=== PATIENT | female | born 1990 | race Caucasian/White ===

== ENCOUNTER → 2017-11-08 | Outpatient (CLI) | payer OTHER | LOC: M WUC 17:15 | DX: S20.212A Contusion of left front wall of thorax, initial encounter (principal); X58.XXXA Exposure to other specified factors, initial encounter; Y92.9 Unspecified place or not applicable | CPT/HCPCS: 71101 ==

== ENCOUNTER → 2018-03-17 | Outpatient (CLI) | payer OTHER | LOC: M WUC 13:44 | DX: M54.5 Low back pain (principal) | CPT/HCPCS: 72110 ==

== ENCOUNTER → 2018-04-21 | Outpatient (REF) | payer OTHER | LOC: M SFHCLERA 15:21 | DX: R30.0 Dysuria (principal) ==

== ENCOUNTER → 2018-05-20 | Outpatient (CLI) | payer OTHER | LOC: M RAD 11:17 | DX: Q76.0 Spina bifida occulta (principal) | CPT/HCPCS: 72148 ==

== ENCOUNTER → 2018-07-29 | Outpatient (CLI) | payer OTHER | LOC: M WUC 18:36 | DX: S63.502A Unspecified sprain of left wrist, initial encounter (principal); X58.XXXA Exposure to other specified factors, initial encounter; Y92.9 Unspecified place or not applicable | CPT/HCPCS: 73110 ==

== ENCOUNTER → 2019-06-07 | Outpatient (REF) | payer OTHER | LOC: M LAB REF 09:11 | PROVIDERS: ATTEND Physician Assistant Medical | DX: R30.0 Dysuria (principal) ==

== ENCOUNTER → 2020-07-13 | Outpatient (REF) | payer OTHER | LOC: M WUC 15:48 | PROVIDERS: ATTEND Physician Assistant | DX: J02.9 Acute pharyngitis, unspecified (principal) ==

== ENCOUNTER 2020-10-06 15:59 | Emergency (ER) | payer OTHER ==
[~2020-10-06] VITALS: Ht 157.5 cm; Wt 65.4 kg
--- OUTSIDE RECORDS SUMMARY | 2020-10-06 16:05 | CCD | Continuity of Care Document ---
Author Author Skye MONTEMAYOR [place] Organization Unknown Address [address] [place] [address] Phone [phone] Care Team Providers Care Stone Planer Name Role Phone [facility] AUTM [phone] [facility] AUTM [phone] Problems Description No Information Available Social History Type Date Description Comments Sex Unknown ETOH Use Rarely consumes alcohol Tobacco Use Start: Unknown Patient is a current smoker, smo kes every day Smoking Status Reviewed: 07/13/20 Patient is a current smoker, smokes every day Allergies, Adverse Reactions, Alerts Description No Known Drug Allergies Medications Active Medications SIG Qnty Indications Ordering Provide r Date Vicks Dayquil Cough Unknown History Medications No Active Medications Unknown 12/2019 - 07/13/2020 Immunizations Description No Information Available Vital Signs Date Vital Result Comment 07/13/2020 2:03pm BP Systolic 117 mmHg BP Diastolic 75 mmHg Heart Rate 99 /min Respiratory Rate 18 /min O2 % BldC Oximetry 99 % Body Temperature 99.2 F Weight 135.00 lb Height 62 inches 5'2" BMI (Body Mass Index) 24.7 kg/m2 Pain Level 2 10/17/2018 12:10pm BP Systolic 106 mmHg BP Diastolic 76 mmHg Heart Rate 101 /min Respiratory Rate 18 /min O2 % BldC Oximetry 98 % Body Temperature 99.0 F Weight 125.00 lb Height 62 inches 5'2" BMI (Body Mass Index) 22.9 kg/m2 Pain Level 6 Results Test Acquired Date Facility Test Result H/L Range Note Laboratory test finding 07/13/[address] [facility] [address] [place] [address] [phone] Throat Culture <pending> Procedures Description No Information Available Medical Devices Description No Information Available Encounters Type Date Location Provider Dx Diagnosis Office Visit 07/13/2020 2:45p Main Office ANNA Manzanares J02.9 Acute pharyngitis, unspecified Z20.828 Contact w and exposure to ot h viral communicable diseases Assessments Date Code Description Provider 07/13/2020 J02.9 Acute pharyngitis, unspecified J ANNA Santamaria 07/13/2020 Z20.828 Contact with and (alarcon spected) exposure to other viral communicable diseases ANNA Manzanares Plan of Treatment No Information Available Functional Status Description No Information Available Mental Status Description No Information Available Referrals Description No Information Available
--- OUTSIDE RECORDS SUMMARY | 2020-10-06 16:05 | CCD | Continuity of Care Document ---
Author Author Skye MONTEMAYOR [place] Organization Unknown Address [address] [place] [id number] Phone [phone] Care Team Providers Care Electrotherapist Name Role Phone [facility] AUTM [phone] [facility] AUTM [phone] Problems Description No Information Available Social History [...] H/L Range Note Laboratory test finding 07/13/2020 [facility] [address] [place] [address] [phone] Throat Culture <pending> Procedures Description No Information [...]
--- OUTSIDE RECORDS SUMMARY | 2020-10-06 16:05 | CCD ---
Author Author [facility] Organization [facility] Address Unknown Phone Unavailable Care Team Providers Care Nanotechnology Engineering Technician Name Role Phone David SANTILLAN Unavailable Unavailable David SANTILLAN Unavailable Unavailable David SANTILLAN Unavailable Unavailable David SANTILLAN Unavailable Unavailable David SANTILLAN Unavailable Unavailable David SANTILLAN Unavailable Unavailable David SANTILLAN Unavailable Unavailable David SANTILLAN Unavailable Unavailable JACQUE, L ELIDA PA Unavailable Unavailable JACQUE, L ELIDA PA Unavailable Unavailable JACQUE, L ELIDA PA Unavailable Unavailable JACQUE, L ELIDA PA Unavailable Unavailable JACQUE, L ELIDA PA Unavailable Unavailable JACQUE, L ELIDA PA Unavailable Unavailable JACQUE, L ELIDA PA Unavailable Unavailable JACQUE, L ELIDA PA Unavailable Unavailable JACQUE, L ELIDA PA Unavailable Unavailable JACQUE, L ELIDA PA Unavailable Unavailable JACQUE, L ELIDA PA Unavailable Unavailable EARLY, W VERNON PA Unavailable Unavailable EARLY, W VERNON PA Unavailable Unavailable EARLY, W VERNON PA Unavailable Unavailable EARLY, W VERNON PA Unavailable Unavailable EARLY, W VERNON PA Unavailable Unavailable EARLY, W VERNON PA Unavailable Unavailable EARLY, W VERNON PA Unavailable Unavailable EARLY, W VERNON PA Unavailable Unavailable EARLY, W VERNON PA Unavailable Unavailable EARLY, W VERNON PA Unavailable Unavailable EARLY, W VERNON PA Unavailable Unavailable EARLY, W VERNON PA Unavailable Unavailable EARLY, W VERNON PA Unavailable Unavailable RADHA, KETAN DESIREE PA Unavailable Unavailable RADHA, KETAN DESIREE PA Unavailable Unavailable RADHA, KETAN DESIREE PA Unavailable Unavailable RADHA, KETAN DESIREE PA Unavailable Unavailable RADHA, KETAN DESIREE PA Unavailable Unavailable RADHA, KETAN DESIREE PA Unavailable Unavailable RADHA, KETAN DESIREE PA Unavailable Unavailable RADHA, KETAN DESIREE PA Unavailable Unavailable RADHA, KETAN DESIREE PA Unavailable Unavailable RADHA, KETAN DESIREE PA Unavailable Unavailable RADHA, KETAN DESIREE PA Unavailable Unavailable RADHA, KETAN DESIREE PA Unavailable Unavailable RADHA, KETAN DESIREE PA Unavailable Unavailable RADHA, KETAN DESIREE PA Unavailable Unavailable RADHA, KETAN DESIREE PA Unavailable Unavailable RADHA, KETAN DESIREE PA Unavailable Unavailable RADHA, KETAN DESIREE PA Unavailable Unavailable RADHA, KETAN DESIREE PA Unavailable Unavailable RADHA, KETAN DESIREE PA Unavailable Unavailable RADHA, KETAN DESIREE PA Unavailable Unavailable RADHA, KETAN DESIREE PA Unavailable Unavailable Das, Gena Lorenza PA Unavailable Unavailable Das, Gena Lorenza PA Unavailable Unavailable Das, Gena Lorenza PA Unavailable Unavailable Das, Gena Lorenza PA Unavailable Unavailable Das, Gena Lorenza PA Unavailable Unavailable Das, Gena Lorenza PA Unavailable Unavailable Das, Gena Lorenza PA Unavailable Unavailable Das, Gena Lorenza PA Unavailable Unavailable Das, Gena Lorenza PA Unavailable Unavailable Das, Gena Lorenza PA Unavailable Unavailable Yaworski, Candida HOUSE CARPENTER HELPER Unavailable Unavailable Yaworski, Candida HOUSE CARPENTER HELPER Unavailable Unavailable Yaworski, Candida HOUSE CARPENTER HELPER Unavailable Unavailable Yaworski, Candida HOUSE CARPENTER HELPER Unavailable Unavailable Yaworski, Candida HOUSE CARPENTER HELPER Unavailable Unavailable Yaworski, Candida HOUSE CARPENTER HELPER Unavailable Unavailable Yaworski, Candida HOUSE CARPENTER HELPER Unavailable Unavailable Yaworski, Candida HOUSE CARPENTER HELPER Unavailable Unavailable Yaworski, Candida HOUSE CARPENTER HELPER Unavailable Unavailable Yaworski, Candida HOUSE CARPENTER HELPER Unavailable Unavailable Yaworski, Candida HOUSE CARPENTER HELPER Unavailable Unavailable Yaworski, Candida HOUSE CARPENTER HELPER Unavailable Unavailable Yaworski, Candida HOUSE CARPENTER HELPER Unavailable Unavailable Yaworski, Candida HOUSE CARPENTER HELPER Unavailable Unavailable Yaworski, Candida HOUSE CARPENTER HELPER Unavailable Unavailable Yaworski, Candida HOUSE CARPENTER HELPER Unavailable Unavailable Yaworski, Candida HOUSE CARPENTER HELPER Unavailable Unavailable Yaworski, Candida HOUSE CARPENTER HELPER Unavailable Unavailable Yaworski, Candida HOUSE CARPENTER HELPER Unavailable Unavailable Yaworski, Candida HOUSE CARPENTER HELPER Unavailable Unavailable Yaworski, Candida HOUSE CARPENTER HELPER Unavailable Unavailable Yaworski, Candida HOUSE CARPENTER HELPER Unavailable Unavailable Yaworski, Candida HOUSE CARPENTER HELPER Unavailable Unavailable Yaworski, Candida HOUSE CARPENTER HELPER Unavailable Unavailable Re-disclosure Warning The records that you are about to access may contain information from federally-assisted alcohol or drug abuse programs. If such information is present, then the following federally mandated warning applies: This information has been disclosed to you from records protected by federal confidentiality rules (42 CFR part 2). The federal rules prohibit you from making any further disclosure of this information unless further disclosure is expressly permitted by the written consent of the person to whom it pertains or as otherwise permitted by 42 CFR part 2. A general authorization for the release of medical or other information is NOT sufficient for this purpose. The Federal rules restrict any use of the information to criminally investigate or prosecute any alcohol or drug abuse patient.The records that you are about to access may contain highly sensitive health information, the redisclosure of which is protected by Article 27-F of the [facility] Public Health law. If you continue you may have access to information: Regarding HIV / AIDS; Provided by facilities licensed or operated by the [facility] Office of Mental Health; or Provided by the [facility] Office for People With Developmental Disabilities. If such information is present, then the following [facility] mandated warning applies: This information has been disclosed to you from confidential records which are protected by state law. State law prohibits you from making any further disclosure of this information without the specific written consent of the person to whom it pertains, or as otherwise permitted by law. Any unauthorized further disclosure in violation of state law may result in a fine or long term sentence or both. A general authorization for the release of medical or other information is NOT sufficient authorization for further disc losure. Family History Family Member Name Family Member Gender Family Member Status Date o f Status Description Data Source(s) Unknown Unknown Problem [facility] ([facility], [facility]) Unknown Male Problem [facility] ([facility] ) Encounters Encounter Providers Location Date Indications Data Source(s ) Outpatient Attender: Lorenza Cruz beka 07/13/2020 01:45:00 PM EST [facility] ([facility]) Emergency Attender: ELIDA Diazerrer: Candida quintero NP 03/28/2020 07:15:00 PM EDT - [facility] [place] [facility]. Emergency Attender: DESIREE De Jesus AAttender: ELIDA Diazerrer: Candida Bruner NP 11/17/2018 06:57:00 PM EDT - 11/17/2018 09:24 :00 PM [facility] Emergency Attender: VERNON Pantojaer: Candida Bruner NP EMERGENCY ROOM-ER 12/05/2015 09:11:00 AM EDT - 11/27/2015 11:45:00 PM [facility] Emergency Attender: VERNON Pantojaer: Candida Bruner NP 09/13/2015 05:57:00 PM EST - 08/17/2015 09:22:00 AM EST [facility] Outpatient Attender: Candida CROSSeferrer: Candida boswell NP 07/08/2014 10:00:00 AM [facility] Medications Medication Brand Name Start Date Product Form Dose Route Admi nistrative Instructions Pharmacy Instructions Status Indications Reaction Description Data Source(s) No Active Medications 07/13/2020 12:00:00 AM EST completed [facility] ([facility]) 10 mg 04/01/2020 12:00:00 AM EDT tablet 20 TAKE ONE TABLET BY MOUTH EVERY 6 HOURS FOR 5 DAYS TAKE ONE TABLET BY MOUTH EVERY 6 HOURS FOR 5 DAYS SOLD : 04/01/2020 [facility] Insurance Providers Payer name Policy type / Coverage type Policy ID Covered constitution party ID Covered constitution party's relationship to franklin Policy [place] Plan Information UNHC COMMUNITY PLAN MCDO [id number] SP [id number] UNITED HE[employer]CARE MEDICAID [id number] S [id number] UNITED HEALTHCARE MEDICAID [id number] S [id number] UNITED HEALTHCARE MEDICAID [id number] S [id number] United 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) [id number] Self [id number] UNITED HEALTHCARE MEDICAID [id number] S [id number] UNITED HEALTHCARE(MCAID) O [id number] S [id number] United 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) [id number] Self [id number] [facility] Community Plan Commercial [id number] Self [id number] [facility] COMMUNITY PLAN [facility] [id number] SP [id number] [facility] Community Plan Commercial [id number] Self [id number] ANSI-Medicaid [id number] United 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) [id number] Self [id number] United 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) [id number] Self [id number] UNITED HEALTHCARE MEDICAID [place] HMO [id number] S [id number] UNITED HEALTHCARE(MCAID) O [id number] S [id number] [facility] Community Plan Commercial Self [employer] BCBS P [id number] S [id number] BLUE CROSS SHARIF PLAN [id number] SP [id number] BLUE CROSS BLUE SHIELD-CLINIC [id number] 18 [id number] BLUE CROSS BLUE SHIELD-O/P [id number] MEDICAID -RECURRING [id number] Problems, Conditions, and Diagnoses Code Display Name Description Problem Type Effective Dates Data Source(s) Y92.[address] in unspeci fied non-institutional (private) residence as the place of occurrence of the external cause UNSP PLACE IN UNSP NON-INSTITUT (PRIVATE) RESIDENC Diagnosis 03/28/2020 07:15:00 PM [facility] W11.XXXA Fall on and from ladder, initial encount er FALL ON AND FROM LADDER, INITIAL ENCOUNTER Diagnosis 03/28/2020 07:15:00 PM [facility] Y93.89 Activity, other specified ACTIVITY, OTHER SPECIFIED Di agnosis 03/28/2020 07:15:00 PM [facility] S60.212A Contusion of left wrist, initial encount er CONTUSION OF LEFT WRIST, INITIAL ENCOUNTER Diagnosis 03/28/2020 07:15:00 PM [facility] S50.12XA Contusion of left forearm, initial encou nter CONTUSION OF LEFT FOREARM, INITIAL ENCOUNTER Diagnosis 03/28/2020 07:15:00 PM [facility] S59.912A Unspecified injury of left forearm, init ial encounter UNSPECIFIED INJURY OF LEFT FOREARM, INITIAL ENCOUNTER Diagnosis 03/28/2020 07:15:0 0 PM [facility] Results ID Date Data Source [id number] 07/13/2020 02:37:00 PM EST [facility] ([facility]) Name Value Range Interpretation Code Description Data Elvie rce(s) Supporting Document(s) Bacteria identified in Throat by Culture Laboratory test result MED[facility] ([facility]) FULL REPORT IN LAB NOTES (eCW and Med[facility] ). NORMAL LUIS PRESENT ID Date Data Source [id number] 03/28/2020 07:58:00 PM [facility] Patient: GLORIA URRUTIA Observati on Report - [facility].VisitID: [id number] [place] [address] [phone], FRegistration Date/Time: 03/28/2020 18:02 Weight:61.2 kg (S). Height/Length:62 inches (S). BMI:24.7 PAST HISTORYProblems:Recent Travel. Additional Surgeries:Cholecystectomy.. (X 2)Fifth digit on right hand. Medications:None. Allergies:No Known Drug Allergies. FAMILY HISTORYNegative. No significant family medical history. (Electronically signed by Pam Hardy 03/28/2020 19:57) Name Value Range Interpretation Code Description Data Elvie rce(s) Supporting Document(s) ID Date Data Source [id number] 03/28/2020 07:55:00 PM EDT [facility] Patient: GLORIA URRUTIA Observati on Report - [facility].VisitID: [id number] [place] [address] [phone], FRegistration Date/Time: 03/28/2020 18:02 Weight:61.2 kg (S). Height/Length:62 inches (S). BMI:24.7 PAST HISTORYProblems:Recent Travel. Additional Surgeries:Cholecystectomy.. (X 2)Fifth digit on right hand. Medications:None. Allergies:No Known Drug Allergies. FAMILY HISTORYNegative. No significant family medical history. (Electronically signed by Pam Hardy 03/28/2020 19:53) Name Value Range Interpretation Code Description Data Elvie rce(s) Supporting Document(s) ID Date Data Source [id number] 03/28/2020 07:19:00 PM EDT [facility] DATE OF EXAMINATION: 03/28/2020 18:22 EDT TECHNIQUE: 2 views of the left forearm were obtained. HISTORY: Injury There is no acute fracture or dislocation. The joint spaces are normal inappearance. IMPRESSION: There is no acute fracture or dislocation. Electronically signed in PS360 by: Abimael Quinones M.D. 03/28/2020 19:14 EDT Name Value Range Interpretation Code Description Data Elvie rce(s) Supporting Document(s) ID Date Data Source [id number] 03/28/2020 07:18:00 PM EDT [facility] DATE OF EXAMINATION: 03/28/2020 18:22 EDT TECHNIQUE: 4 views of the left elbow were obtained. HISTORY: Injury FINDINGS: There is no acute fracture or dislocation. The joint space is normalin appearance. IMPRESSION: There is no acute fracture or dislocation. Electronically signed in PS360 by: Abimael Quinones M.D. 03/28/2020 19:13 EDT Name Value Range Interpretation Code Description Data Elvie rce(s) Supporting Document(s) Procedure Vital Signs ID Date Data Source UNK Name Value Range Interpretation Code Description Data Source(s) Body mass index (BMI) [Ratio] 24.7 kg/m2 24.7 k g/m2 [facility]) Body height 62 [in_i] 62 [in_i] [facility] ([facility], [facility]) 5'2" Body weight 135.00 [lb_av] 135.00 [lb_av] MEDEN T ([facility], [facility]) Body temperature 99.2 [degF] 99.2 [degF] [facility] ([facility], [facility]) Oxygen saturation in Arterial blood by Pulse oximetry 99 % 99 % [facility] ([facility], [facility]) Respiratory rate 18 /min 18 /min [facility] ( [facility]) Heart rate 99 /min 99 /min [facility] ([facility], [facility]) Diastolic blood pressure 75 mm[Hg] 75 mm[Hg] [facility] ([facility], [facility]) Systolic blood pressure 117 mm[Hg] 117 mm[Hg] [facility])
--- OUTSIDE RECORDS SUMMARY | 2020-10-06 16:05 | CCD | Continuity of Care Document ---
Author Author Skye MONTEMAYOR [place] Organization Unknown Address [address] [place] [address] Phone [phone] Care Team Providers Care Circus Agent Name Role Phone [facility] AUTM [phone] [facility] AUTM [phone] Problems Description No Information Available Social History [...] H/L Range Note Laboratory test finding 07/13/2020 [facility] [address] [place] [address] [phone] Throat Culture FULL REPORT IN L <SEE NOTE> Normal 1 1 FULL REPORT IN LAB NOTES (eC W and Med[facility]). NORMAL LUIS PRESENT Procedures Description No Information Available Medical Devices [...]
[2020-10-06] MEDS ORDERED: NS 1,000 ML IV ONE (16:30)
[2020-10-06] MEDS ORDERED: diphenhydrAMINE 50MG/ML VIAL (J1200) IV ONE (17:00)
[2020-10-06] MEDS ORDERED: KETOROLAC 30 MG/ML 1ML VIAL IV ONE (17:00)
[2020-10-06] MEDS ORDERED: METOCLOPRAMIDE INJ 10MG/2ML VIAL (J2765 PER 1) IV ONE (17:00)
--- OUTSIDE RECORDS SUMMARY | 2020-10-06 17:08 | CCD ---
Author Author [facility] Organization [facility] Address Unknown Phone Unavailable Care Team Providers Care Emergency Service Worker Name Role Phone David SANTILLAN Unavailable Unavailable [...] L ELIDA PA Unavailable Unavailable JACQUE, L ELDIA PA Unavailable Unavailable JACQUE, L ELIDA PA [...] W VERNON PA Unavailable Unavailable EARLY, W EVRNON PA Unavailable Unavailable EARLY, W VERNON PA [...] Gena Lorenza PA Unavailable Unavailable Yaworski, Candida LEATHER WORKER Unavailable Unavailable Yaworski, Candida LEATHER WORKER Unavailable Unavailable Yaworski, Candida LEATHER WORKER Unavailable Unavailable [place]aworski, Candida LEATHER WORKER Unavailable Unavailable Yaworski, Candida LEATHER WORKER Unavailable Unavailable [place]aworski, Candida LEATHER WORKER Unavailable Unavailable [place]aworski, Candida LEATHER WORKER Unavailable Unavailable Yaworski, Candida LEATHER WORKER Unavailable Unavailable Yaworski, Candida LEATHER WORKER Unavailable Unavailable [place]aworski, Candida LEATHER WORKER Unavailable Unavailable Yaworski, Candida LEATHER WORKER Unavailable Unavailable Yaworski, Candida LEATHER WORKER Unavailable Unavailable Yaworski, Candida LEATHER WORKER Unavailable Unavailable Yaworski, Candida LEATHER WORKER Unavailable Unavailable Yaworski, Candida LEATHER WORKER Unavailable Unavailable Yaworski, Candida LEATHER WORKER Unavailable Unavailable Yaworski, Candida LEATHER WORKER Unavailable Unavailable Yaworski, Candida LEATHER WORKER Unavailable Unavailable Yaworski, Candida LEATHER WORKER Unavailable Unavailable Yaworski, Candida LEATHER WORKER Unavailable Unavailable Yaworski, Candida LEATHER WORKER Unavailable Unavailable Yaworski, Candida LEATHER WORKER Unavailable Unavailable Yaworski, Candida LEATHER WORKER Unavailable Unavailable Yaworski, Candida LEATHER WORKER Unavailable Unavailable Re-disclosure Warning The records that [...] is protected by Article 27-F of the [facility] Public Health law. If you continue you may have access to information: Regarding HIV / AIDS; Provided by facilities licensed or operated by the [facility] Office of Mental Health; or Provided by the [facility] Office for People With Developmental Disabilities. If such information is present, then the following [facility] mandated warning applies: This information has been [...] law may result in a fine or custodial sentence or both. A general authorization for the release of medical or other information is NOT sufficient authorization for further disc losure. Family History Family Member Name Family Member Gender Family Member Status Date o f Status Description Data Source(s) Unknown Unknown Problem [facility]) Unknown Male Problem [facility] ([facility] ) Encounters Encounter Providers Location Date Indications Data Source(s ) Outpatient Attender: Lorenza Cruz beka 07/13/2020 01:45:00 PM EST [facility] ([facility]) Emergency Attender: ELIDA Diazerrer: Cnadida quintero NP 03/28/2020 07:15:00 PM EDT [facility]. [facility] Attender: DESIREE De Jesus AAttender: ELIDA Diazerrer: Candida Bruner NP 11/17/2018 06:57:00 PM EDT - 11/17/2018 09:24 :00 PM [facility] Emergency Attender: VERNON Pantojaer: Candida Bruner NP EMERGENCY ROOM-ER 12/05/2015 09:11:00 AM EDT - 11/27/2015 11:45:00 PM [facility] Emergency Attender: VERNON Pantojaer: Candida Bruner NP 09/13/2015 05:57:00 PM EST - 08/17/2015 09:22:00 AM EST [facility] Outpatient Attender: Candida CROSSeferrer: Candida boswell NP 07/08/2014 10:00:00 AM [facility] Medications Medication Brand Name Start Date Product Form Dose Route Admi nistrative Instructions Pharmacy Instructions Status Indications Reaction Description Data Source(s) No Active Medications 07/13/2020 12:00:00 AM EST completed [facility] ([facility]) 10 mg 04/01/2020 12:00:00 AM EDT tablet 20 TAKE ONE TABLET BY MOUTH EVERY 6 HOURS FOR 5 DAYS TAKE ONE TABLET BY MOUTH EVERY 6 HOURS FOR 5 DAYS SOLD : 04/01/2020 [facility] Insurance Providers Payer name Policy type / Coverage type Policy ID Covered republican ID Covered republican's relationship to franklin Policy [place] Plan Information UNHC COMMUNITY PLAN MCDO [id number] SP [id number] UNITED [employer]CARE MEDICAID [id number] S [id number] UNITED HE[employer]CARE MEDICAID [id number] S [id number] UNITED HEALTHCARE MEDICAID [id number] S [id number] United 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) [id number] Self [id number] UNITED HEALTHCARE MEDICAID [id number] S [id number] UNITED HEALTHCARE(MCAID) O [id number] S [id number] United 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) [id number] Self [id number] [facility] Community Plan Commercial [id number] Self [id number] [facility] COMMUNITY PLAN [facility] [id number] SP [id number] [facility] Community Plan Commercial [id number] Self [id number] ANSI-Medicaid [id number] United 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) [id number] Self [id number] United 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) [id number] Self [id number] UNITED HEALTHCARE MEDICAID [place] HMO [id number] S [id number] UNITED HEALTHCARE(MCAID) O [id number] S [id number] [facility] Community Plan Commercial Self [employer] BCBS P [id number] S [id number] BLUE CROSS SHARIF PLAN [id number] SP [id number] BLUE CROSS BLUE SHIELD-CLINIC [id number] 18 [id number] BLUE CROSS BLUE SHIELD-O/P [id number] 18 [id number] MEDICAID -RECURRING [id number] Problems, Conditions, and Diagnoses Code Display Name Description Problem Type Effective Dates Data Source(s) Y92.[address] in unspeci fied non-institutional (private) residence as the place of occurrence of the external cause UNSP PLACE IN UNSP NON-INSTITUT (PRIVATE) RESIDENC Diagnosis 03/28/2020 07:15:00 PM [facility] l W11.XXXA Fall on and from ladder, initial encount er FALL ON AND FROM LADDER, INITIAL ENCOUNTER Diagnosis 03/28/2020 07:15:00 PM [facility] l Y93.89 Activity, other specified ACTIVITY, OTHER SPECIFIED Di agnosis 03/28/2020 07:15:00 PM [facility] S60.212A Contusion of left wrist, initial encount er CONTUSION OF LEFT WRIST, INITIAL ENCOUNTER Diagnosis 03/28/2020 07:15:00 PM [facility] l S50.12XA Contusion of left forearm, initial encou nter CONTUSION OF LEFT FOREARM, INITIAL ENCOUNTER Diagnosis 03/28/2020 07:15:00 PM [facility] l S59.912A Unspecified injury of left forearm, init ial encounter UNSPECIFIED INJURY OF LEFT FOREARM, INITIAL ENCOUNTER Diagnosis 03/28/2020 07:15:0 0 PM [facility] Results ID Date Data Source [id number] 07/13/2020 02:37:00 PM EST [facility] ([facility]) Name Value Range Interpretation Code Description Data Elvie rce(s) Supporting Document(s) Bacteria identified in Throat by Culture Laboratory test result [facility] ([facility]) FULL REPORT IN LAB NOTES (eCW and Med[facility] ). NORMAL LUIS PRESENT ID Date Data Source [id number] 03/28/2020 07:58:00 PM [facility] Patient: GLORIA URRUTIA Observati on Report - [facility].VisitID: [id number] [place] [address] [phone], FRegistration Date/Time: 03/28/2020 18:02 Weight:61.2 kg (S). Height/Length:62 inches (S). BMI:24.7 PAST HISTORYProblems:Recent Travel. Additional Surgeries:Cholecystectomy.. (X 2)Fifth digit on right hand. Medications:None. Allergies:No Known Drug Allergies. FAMILY HISTORYNegative. No significant family medical history. (Electronically signed by Pam Hardy 03/28/2020 19:57) Name Value Range Interpretation Code Description Data Elvie rce(s) Supporting Document(s) ID Date Data Source [id number] 03/28/2020 07:55:00 PM EDT [facility] Patient: GLORIA URRUTIA Observati on Report - [facility].VisitID: [id number] [place] [address] [phone], FRegistration Date/Time: 03/28/2020 18:02 Weight:61.2 kg (S). Height/Length:62 inches (S). BMI:24.7 PAST HISTORYProblems:Recent Travel. Additional Surgeries:Cholecystectomy.. (X 2)Fifth digit on right hand. Medications:None. Allergies:No Known Drug Allergies. FAMILY HISTORYNegative. No significant family medical history. (Electronically signed by Pam Hardy 03/28/2020 19:53) Name Value Range Interpretation Code Description Data Elvie rce(s) Supporting Document(s) ID Date Data Source [id number] 03/28/2020 07:19:00 PM EDT [facility] [...] rce(s) Supporting Document(s) ID Date Data Source [id number] 03/28/2020 07:18:00 PM EDT [facility] [...] (BMI) [Ratio] 24.7 kg/m2 24.7 k g/m2 [facility]) Body height 62 [in_i] 62 [in_i] [facility] ([facility], [facility]) 5'2" Body weight 135.00 [lb_av] 135.00 [lb_av] [facility] ([facility], [facility]) Body temperature 99.2 [degF] 99.2 [degF] [facility] ([facility], [facility]) Oxygen saturation in Arterial blood by Pulse oximetry 99 % 99 % [facility] ([facility], [facility]) Respiratory rate 18 /min 18 /min [facility] ( [facility], [facility]) Heart rate 99 /min 99 /min [facility] ([facility], [facility]) Diastolic blood pressure 75 mm[Hg] 75 mm[Hg] [facility] ([facility], [facility]) Systolic blood pressure 117 mm[Hg] 117 mm[Hg] [facility], [facility])
[2020-10-06 17:14] LABS: BASO # 0.1 10^3/uL (0.0-0.2); BASO % 0.7 % (0.0-1.0); HEMATOCRIT 37.5 % (36.0-47.0); HEMOGLOBIN 12.2 g/dl (12.0-15.5); LYMPH # 2.8 10^3/uL (1.5-5.0); LYMPH % 30.6 % (24.0-44.0); MEAN CORPUSCULAR HEMOGLOBIN 29.8 pg (27.0-33.0); MEAN CORPUSCULAR HGB CONC 32.5 g/dl (32.0-36.5); MEAN CORPUSCULAR VOLUME 91.7 fl (80.0-96.0); MONO # 0.5 10^3/uL (0.0-0.8); NEUTROPHILS # 5.7 10^3/uL (1.5-8.5); NEUTROPHILS % 62.5 % (36.0-66.0); PLATELET COUNT, AUTOMATED 245 10^3/uL (150-450); RED BLOOD COUNT 4.09 10^6/uL (4.00-5.40); WHITE BLOOD COUNT 9.1 10^3/uL (4.0-10.0)
--- NOTE | 2020-10-06 17:31 | REPVR ---
PROCEDURE INFORMATION: Exam: CT Cervical Spine Without Contrast Exam date and time: 10/06/2020 5:15 PM Age: 30 years old Clinical indication: Neck pain; Additional info: Severe headache whole head x 30 days, neck pain TECHNIQUE: Imaging protocol: Computed tomography images of the cervical spine without contrast. Radiation optimization: All CT scans at this facility use at least one of these dose optimization techniques: automated exposure control; mA and/or kV adjustment per patient size (includes targeted exams where dose is matched to clinical indication); or iterative reconstruction. COMPARISON: CR SPINE LS COMPLETE 03/17/2018 1:50 PM FINDINGS: Bones/joints: Straightening of the cervical spine. No acute fracture. No spondylolisthesis. Discs/Spinal canal/Neural foramina: No significant disc protrusion. No severe spinal canal stenosis. No significant neural foraminal narrowing. Lungs: Lung apices are normal. Soft tissues: Unremarkable. IMPRESSION: Straightening of the cervical spine. Ligamentous/muscular strain. Electronically signed by: Pierce Real On 10/06/2020 17:30:56 PM
[2020-10-06 17:37] LABS: ALBUMIN 4.5 GM/DL (3.2-5.2); BILIRUBIN,DIRECT 0.1 MG/DL (0.0-0.2); BILIRUBIN,TOTAL 0.4 MG/DL (0.2-1.0); TOTAL PROTEIN 7.8 GM/DL (6.4-8.2)
--- NOTE | 2020-10-06 17:47 | REPVR ---
PROCEDURE INFORMATION: Exam: CT Head Without Contrast Exam date and time: 10/06/2020 5:15 PM Age: 30 years old Clinical indication: Pain; Headache; Additional info: Severe headache whole head x 30 days TECHNIQUE: Imaging protocol: Computed tomography of the head without contrast. Radiation optimization: All CT scans at this facility use at least one of these dose optimization techniques: automated exposure control; mA and/or kV adjustment per patient size (includes targeted exams where dose is matched to clinical indication); or iterative reconstruction. COMPARISON: No relevant prior studies available. FINDINGS: Brain: The cerebellar tonsils are low lying approximately 2 mm below the foramina magnum. The chavez-white differentiation is maintained. No hemorrhage. No edema. Cerebral ventricles: No ventriculomegaly. Bones/joints: Unremarkable. No acute fracture. Paranasal sinuses: Visualized sinuses are unremarkable. No fluid levels. Mastoid air cells: Visualized mastoid air cells are well aerated. Soft tissues: Unremarkable. IMPRESSION: No acute intracranial abnormality. Possibly low-lying cerebellar tonsils. Electronically signed by: Pierce Real On 10/06/2020 17:47:22 PM
[2020-10-06 18:37] VITALS: BP 110/63
== END 2020-10-06 18:38 | disposition home or self-care (01) ==
LOC: M ED 15:59
DX: Q04.8 Other specified congenital malformations of brain (principal); R51.9 Headache, unspecified; J45.909 Unspecified asthma, uncomplicated; F33.9 Major depressive disorder, recurrent, unspecified; F17.200 Nicotine dependence, unspecified, uncomplicated
CPT/HCPCS: 70450; 72125; 80047; 80076; 84702; 85025; 96361; 96374; 96375; 99284; J1200; J1885; J2765

== ENCOUNTER → 2021-02-01 | Outpatient (REF) | payer OTHER | LOC: M WUC 19:56 | PROVIDERS: ATTEND Physician Assistant | DX: N39.0 Urinary tract infection, site not specified (principal) ==

== ENCOUNTER → 2021-08-22 | Outpatient (CLI) | payer OTHER ==
--- NOTE | 2021-08-22 18:17 | REP ---
INDICATION: PAIN IN RIGHT HAND. COMPARISON: Right hand, 02/21/2011. TECHNIQUE: Four images of the right hand were obtained. FINDINGS: There is cast material about the forearm wrist and 4th and 5th fingers. There is a minimally impacted fracture of the neck of the 5th metacarpal. There is minimal palmar angulation deformity. There is a healed fracture of the middle phalanx of the 5th finger. IMPRESSION: Fracture of the neck of the 5th metacarpal and in cast material. <Electronically signed by Arron Harris > 08/22/21 [id number]
== END ==
LOC: M RAD 16:48
PROVIDERS: ATTEND Nurse Practitioner Family
DX: S62.366A Nondisplaced fracture of neck of fifth metacarpal bone, right hand, initial encounter for closed fracture (principal); X58.XXXA Exposure to other specified factors, initial encounter; Y92.9 Unspecified place or not applicable; Y93.9 Activity, unspecified

== ENCOUNTER → 2021-10-19 | Outpatient (CLI) | payer OTHER | LOC: M PLAIMG 12:54 | PROVIDERS: ATTEND Physician Assistant | DX: S62.366D Nondisplaced fracture of neck of fifth metacarpal bone, right hand, subsequent encounter for fracture with routine healing (principal) ==

== ENCOUNTER → 2022-02-16 | Outpatient (CLI) | payer OTHER | LOC: M PLARAD 14:32 | PROVIDERS: ATTEND Orthopaedic Surgery Hand Surgery | DX: S62.334A Displaced fracture of neck of fourth metacarpal bone, right hand, initial encounter for closed fracture (principal); X58.XXXA Exposure to other specified factors, initial encounter; Y92.9 Unspecified place or not applicable; Y93.9 Activity, unspecified; Y99.9 Unspecified external cause status ==

== ENCOUNTER → 2022-09-17 | Outpatient (CLI) | payer OTHER ==
[~2022-09-17] MED LIST: ALBU6.7H6 INH
== END ==
LOC: M LABSMTC 09:54
PROVIDERS: ATTEND Anesthesiology
DX: Z01.812 Encounter for preprocedural laboratory examination (principal); Z20.822 Contact with and (suspected) exposure to COVID-19

== ENCOUNTER 2022-09-21 06:08 | Day surgery (SDC) | payer OTHER ==
[~2022-09-21] VITALS: Ht 157.5 cm; Wt 53.5 kg
[2022-09-21] MEDS ORDERED: LR 1,000 ML IV SCH ×2 (06:35→08:50)
[2022-09-21] MEDS ORDERED: MIDAZOLAM INJ 2MG/2ML VIAL As Ordered ONE (06:54)
[2022-09-21] MEDS ORDERED: fentaNYL 100 MCG/2 ML INJECTION As Ordered ONE (06:54)
[2022-09-21] MEDS ORDERED: KETOROLAC 60MG 2ML VIAL As Ordered ONE (06:55)
[2022-09-21] MEDS ORDERED: ONDANSETRON 4MG 2ML VIAL As Ordered ONE (06:55)
[2022-09-21] MEDS ORDERED: ACETAMINOPHEN 1000MG 100ML IV BAG As Ordered ONE (06:55)
[2022-09-21] MEDS ORDERED: propofoL 200 MG/20 ML VIAL As Ordered ONE (06:55)
[2022-09-21] MEDS ORDERED: LIDOCAINE 2% 100MG/5ML SDV (FOR ANES.) As Ordered ONE (06:55)
[2022-09-21] MEDS ORDERED: LIDOCAINE W/EPINEPHRINE 1% 20ML VIAL As Ordered ONE (07:08)
[2022-09-21] MEDS ORDERED: oxyCODONE 5MG TAB PO PRN (08:50)
[2022-09-21] MEDS ORDERED: fentaNYL 100 MCG/2 ML INJECTION IV PRN (08:50)
[2022-09-21] MEDS ORDERED: ONDANSETRON 4MG 2ML VIAL IV PRN (08:50)
[2022-09-21] MEDS ORDERED: PERC5TAB12 PO (08:59)
[2022-09-21] MEDS: HYDROMORPHONE HCL 0.5 MG/ 0.5 ML SYRINGE IV PRN ×2 (09:37→09:42)
[2022-09-21 10:30] VITALS: BP 111/77
== END 2022-09-21 10:46 | disposition home or self-care (01) ==
LOC: M SDC 06:08
PROVIDERS: ATTEND Orthopaedic Surgery Hand Surgery
DX: G56.21 Lesion of ulnar nerve, right upper limb (principal); G43.909 Migraine, unspecified, not intractable, without status migrainosus; J45.909 Unspecified asthma, uncomplicated; Z79.51 Long term (current) use of inhaled steroids; F17.210 Nicotine dependence, cigarettes, uncomplicated
CPT/HCPCS: 64718; 81025; J1100; J2405

== ENCOUNTER 2022-11-20 11:02 | Emergency (ER) | payer OTHER ==
[~2022-11-20] VITALS: Ht 157.5 cm; Wt 50.0 kg
[~2022-11-20 11:02] MED LIST changes: +PERC5TAB12 PO
[2022-11-20] MEDS ORDERED: ACET-897 PO (11:18)
[2022-11-20] MEDS ORDERED: ADDE1TAB20 PO (11:18)
[2022-11-20] MEDS ORDERED: KETOROLAC TROMETHAMINE 10 MG TAB PO ONE (11:50)
[2022-11-20] MEDS ORDERED: CYCL-707 PO (13:12)
[2022-11-20 13:20] VITALS: BP 121/74
== END 2022-11-20 13:21 | disposition home or self-care (01) ==
LOC: EDBD 11:02 → M ED 11:02
DX: S16.1XXA Strain of muscle, fascia and tendon at neck level, initial encounter (principal); S46.011A Strain of muscle(s) and tendon(s) of the rotator cuff of right shoulder, initial encounter; J45.909 Unspecified asthma, uncomplicated; F17.200 Nicotine dependence, unspecified, uncomplicated; F12.10 Cannabis abuse, uncomplicated; V49.50XA Passenger injured in collision with unspecified motor vehicles in traffic accident, initial encounter; Z79.1 Long term (current) use of non-steroidal anti-inflammatories (NSAID); Z79.899 Other long term (current) drug therapy

== ENCOUNTER 2024-05-05 13:55 | Emergency (ER) | payer OTHER, SELFPAY ==
[~2024-05-05] VITALS: Ht 157.5 cm; Wt 51.9 kg
[~2024-05-05 13:55] MED LIST changes: +ACET-897 PO; +ADDE1TAB20 PO; +CYCL-707 PO
[2024-05-05 14:30] LABS: BASO # 0.1 10^3/uL (0.0-0.2); BASO % 0.7 % (0.0-1.0); EOS # 0.2 10^3/uL (0.0-0.5); EOS % 1.6 % (0.0-3.0); HEMATOCRIT 33.2 % (36.0-47.0); HEMOGLOBIN 11.5 g/dl (12.0-15.5); LYMPH # 2.3 10^3/uL (1.5-5.0); MEAN CORPUSCULAR HEMOGLOBIN 31.3 pg (27.0-33.0); MEAN CORPUSCULAR HGB CONC 34.6 g/dl (32.0-36.5); MEAN CORPUSCULAR VOLUME 90.5 fl (80.0-96.0); MONO % 10.6 % (2.0-8.0); NEUTROPHILS % 62.8 % (36.0-66.0); PLATELET COUNT, AUTOMATED 231 10^3/uL (150-450); RED BLOOD COUNT 3.67 10^6/uL (4.00-5.40); WHITE BLOOD COUNT 9.6 10^3/uL (4.0-10.0)
[2024-05-05 14:59] LABS: LIPASE 32 U/L (12-53)
[2024-05-05 15:01] LABS: ALBUMIN 3.9 G/DL (3.2-5.2); ALKALINE PHOSPHATASE 122 U/L (46-116); ALT/SGPT 21 U/L (7.0-40); AST/SGOT 16 U/L (<34); BILIRUBIN,DIRECT 0.2 MG/DL (<0.4); BILIRUBIN,TOTAL 0.6 MG/DL (0.3-1.2); BLOOD UREA NITROGEN 13 MG/DL (9-23); CALCIUM LEVEL 9.8 MG/DL (8.5-10.1); CARBON DIOXIDE LEVEL 20 MMOL/L (20-31); CHLORIDE LEVEL 111 MMOL/L (98-107); CREATININE FOR GFR 0.97 MG/DL (0.55-1.30); GLOMERULAR FILTRATION RATE > 60.0 (>60); GLUCOSE, FASTING 105 MG/DL (60-100); POTASSIUM SERUM 3.4 MMOL/L (3.5-5.1); SODIUM LEVEL 140 MMOL/L (136-145); TOTAL PROTEIN 7.3 G/DL (5.7-8.2)
[2024-05-05] MEDS: KETOROLAC 30 MG/ML 1ML VIAL IV ONE (17:28)
[2024-05-05 17:29] LABS: HCG, SERUM QUALITATIVE NEGATIVE (NEGATIVE)
[2024-05-05] MEDS: ONDANSETRON 4MG 2ML VIAL IV ONE (17:29)
[2024-05-05] MEDS ORDERED: ISOVUE-370 76% 100ML VIAL As Ordered ONE (18:30)
[2024-05-05] MEDS: ACETAMINOPHEN *IV* 1,000 MG in IV 1 EA IV ONE (19:51)
[2024-05-05 22:40] VITALS: BP 100/68; TEMP 97.5; O2SAT 100
[2024-05-05] MEDS ORDERED: SIMETHICONE 80MG CHEW TAB PO ONE (22:45)
[2024-05-05] MEDS ORDERED: IBUP-1022 PO (22:53)
== END 2024-05-05 23:03 | disposition left against medical advice (07) ==
LOC: M ED 13:55
DX: R10.2 Pelvic and perineal pain (principal); J45.909 Unspecified asthma, uncomplicated; Z79.1 Long term (current) use of non-steroidal anti-inflammatories (NSAID); Z53.9 Procedure and treatment not carried out, unspecified reason
CPT/HCPCS: 74177; 76856; 80048; 80076; 81001; 83690; 84703; 85025; 93976; 96365; 96375; 99284; J0131; J1885; J2405; Q9967

== ENCOUNTER 2024-12-18 08:54 | Emergency (ER) | payer OTHER, SELFPAY ==
[~2024-12-18 08:54] MED LIST changes: +IBUP-1022 PO
[2024-12-18] MEDS: NS 500 ML IV ONE (09:25)
[2024-12-18] MEDS: MORPHINE 2 MG/ML 1ML VIAL IV PRN (09:43)
[2024-12-18 10:09] LABS: BASO # 0.1 10^3/uL (0.0-0.2); BASO % 0.6 % (0.0-1.0); HEMATOCRIT 37.5 % (36.0-47.0); HEMOGLOBIN 12.4 g/dl (12.0-15.5); LYMPH # 1.6 10^3/uL (1.5-5.0); LYMPH % 17.7 % (24.0-44.0); MEAN CORPUSCULAR HEMOGLOBIN 30.5 pg (27.0-33.0); MEAN CORPUSCULAR HGB CONC 33.1 g/dl (32.0-36.5); MEAN CORPUSCULAR VOLUME 92.4 fl (80.0-96.0); MONO # 0.5 10^3/uL (0.0-0.8); MONO % 5.1 % (2.0-8.0); NEUTROPHILS # 7.1 10^3/uL (1.5-8.5); NEUTROPHILS % 76.3 % (36.0-66.0); PLATELET COUNT, AUTOMATED 318 10^3/uL (150-450); RED BLOOD COUNT 4.06 10^6/uL (4.00-5.40); WHITE BLOOD COUNT 9.3 10^3/uL (4.0-10.0)
[2024-12-18] MEDS ORDERED: ISOVUE-370 76% 100ML VIAL As Ordered ONE (10:27)
[2024-12-18 10:30] LABS: LIPASE 27 U/L (12-53)
[2024-12-18 10:31] LABS: AMYLASE 86 U/L (30-118)
[2024-12-18 10:32] LABS: ALBUMIN 3.6 G/DL (3.2-5.2); ALKALINE PHOSPHATASE 156 U/L (35-104); ALT/SGPT 101 U/L (7.0-40); AST/SGOT 37 U/L (<34); BILIRUBIN,DIRECT < 0.1 MG/DL (<0.4); BILIRUBIN,TOTAL 0.2 MG/DL (0.3-1.2); BLOOD UREA NITROGEN 8 MG/DL (9-23); CARBON DIOXIDE LEVEL 23 MMOL/L (20-31); CHLORIDE LEVEL 105 MMOL/L (98-107); CK-MB VALUE MASS < 1.0 NG/ML (<3.6); CREATININE FOR GFR 0.79 MG/DL (0.55-1.30); GLOMERULAR FILTRATION RATE > 90.0 (>60); GLUCOSE, FASTING 113 MG/DL (60-100); POTASSIUM SERUM 4.6 MMOL/L (3.5-5.1); SODIUM LEVEL 138 MMOL/L (136-145); TOTAL PROTEIN 7.3 G/DL (5.7-8.2)
[2024-12-18 10:38] LABS: CPK CREATINE PHOSPHOKINASE 54 U/L (34-145); MB/CK RELATIVE INDEX 1.85 (< OR =4)
[2024-12-18] MEDS: ACETAMINOPHEN *IV* 1,000 MG in IV 1 EA IV ONE (12:30)
[2024-12-18] MEDS: KETOROLAC 30 MG/ML 1ML VIAL IV ONE (12:31)
[2024-12-18] MEDS: MORPHINE 4 MG/ML 1ML VIAL IV PRN (12:31)
[2024-12-18] MEDS ORDERED: PERC5TAB12 PO (14:23)
[2024-12-18 14:39] VITALS: BP 118/69; TEMP 97.4; O2SAT 98
== END 2024-12-18 14:41 | disposition home or self-care (01) ==
LOC: M ED 08:54 → EDBD 08:54 → M ED 14:41
DX: S13.4XXA Sprain of ligaments of cervical spine, initial encounter (principal); V49.40XA Driver injured in collision with unspecified motor vehicles in traffic accident, initial encounter; J45.909 Unspecified asthma, uncomplicated; F41.9 Anxiety disorder, unspecified; F10.10 Alcohol abuse, uncomplicated; F17.200 Nicotine dependence, unspecified, uncomplicated; F12.10 Cannabis abuse, uncomplicated; Z79.1 Long term (current) use of non-steroidal anti-inflammatories (NSAID); Z79.899 Other long term (current) drug therapy; Y92.410 Unspecified street and highway as the place of occurrence of the external cause; Y93.89 Activity, other specified; Y99.9 Unspecified external cause status
CPT/HCPCS: 70450; 71260; 72125; 72128; 72131; 72170; 73030; 73060; 73110; 73502; 73552; 73590; 73610; 73630; 74177; 80047; 80048; 80076; 82150; 82550; 82553; 83605; 83690; 84484; 85025; 86850; 86900; 86901; 93005; 93041; 94760; 96374; 96375; 96376; 99284; J0131; J1885; Q9967

== ENCOUNTER → 2025-08-17 | Outpatient (CLI) | payer OTHER ==
[~2025-08-17] MED LIST changes: -IBUP-1022 PO; +IBUP600T42 PO
== END ==
LOC: M WUC 14:40
DX: R07.9 Chest pain, unspecified (principal)